=== PATIENT | male | born 1975 | race Hispanic/Latino ===

== ENCOUNTER 2017-07-30 14:20 | Emergency (ER) | payer BC ==
[~2017-07-30] VITALS: Ht 162.6 cm; Wt 98.4 kg
[2017-07-30] MEDS ORDERED: SODIUM CHLORIDE 0.9% 1000ML 1,000 ML IV STA (14:53)
[2017-07-30] MEDS ORDERED: METOCLOPRAMIDE HCL 10 MG/2ML VIAL IV ONE (15:00)
[2017-07-30 16:23] VITALS: BP 156/97
[2017-07-30] MEDS ORDERED: SODIUM CHLORIDE 0.9% 1000ML 1,000 ML IV ONE (16:30)
== END 2017-07-30 17:16 | disposition home or self-care (01) ==
LOC: FSED 14:20
DX: R50.9 Fever, unspecified (principal); G44.83 Primary cough headache; G44.89 Other headache syndrome; J11.1 Influenza due to unidentified influenza virus with other respiratory manifestations; I10 Essential (primary) hypertension
CPT/HCPCS: 70450; 74022; 80053; 81003; 83518; 85025; 87400; 99284; J2765; J7030

== ENCOUNTER 2018-10-20 00:29 | Emergency (ER) | payer BC ==
[~2018-10-20] VITALS: Ht 165.1 cm; Wt 99.8 kg
[2018-10-20] MEDS ORDERED: SODIUM CHLORIDE 0.9% 1000ML 1,000 ML IV SCH (01:00)
[2018-10-20] MEDS ORDERED: ONDANSETRON HCL INJ 2MG/ML 2ML 2 MG/ML VIAL IV STA (01:00)
[2018-10-20] MEDS ORDERED: MORPHINE SULFATE 2 MG/ML SYR 1ML IV STA (01:05)
[2018-10-20] MEDS ORDERED: MORPHINE SULFATE INJ 4 MG/ML INJ 1ML ONE (01:10)
--- NOTE | 2018-10-20 02:55 | Diagnostic Imaging Report ---
EXAM: CT Abdomen and Pelvis WITHOUT contrast INDICATION: Abdominal pain with nausea and vomiting COMPARISON: None. TECHNIQUE: Abdomen and pelvis were scanned utilizing a multidetector helical scanner from the lung base to the pubic symphysis without administration of IV contrast. Absence of intravenous contrast decreases sensitivity for detection of focal lesions and vascular pathology. Coronal and sagittal reformations were obtained. Routine protocol was performed. IV CONTRAST: None ORAL CONTRAST: None COMPLICATIONS: None RADIATION DOSE: Total DLP: 814 mGy*cm Estimated effective dose: (DLP x 0.015 x size factor) mSv CTDIvol has been reviewed. It is below the limits set by the Radiation Protocol Committee (RPC). Dose modulation, iterative reconstruction, and/or weight based adjustment of the mA/kV was utilized to reduce the radiation dose to as low as reasonably achievable. FINDINGS: LINES and TUBES: None. LOWER THORAX: Coronary artery calcifications. HEPATOBILIARY: No focal hepatic lesions. No biliary ductal dilation. GALLBLADDER: Questionable intraluminal densities. The gallbladder is mildly distended but not hydropic. No wall thickening. SPLEEN: No splenomegaly. PANCREAS: No focal masses or ductal dilatation. ADRENALS: No adrenal nodules KIDNEYS/URETERS: No hydronephrosis. No cystic or solid mass lesions. No stones. GI TRACT: Small hiatal hernia. No abnormal distention, wall thickening, or evidence of bowel obstruction. Changes of partial gastrectomy intact. Appendix is normal. PELVIC ORGANS/BLADDER: Unremarkable. LYMPH NODES: No lymphadenopathy. VESSELS: Mild arteriovascular calcifications. PERITONEUM / RETROPERITONEUM: No free air or fluid. BONES: Unremarkable. SOFT TISSUES: There is a fat containing para-umbilical hernia. IMPRESSION: 1. Small hiatal hernia. 2. Partially visualized coronary artery calcific atherosclerosis. 3. Question cholelithiasis. Consider right upper quadrant ultrasound for the evaluation. Signed by: Teodoro Friedman DO on 10/20/2018 2:52 AM
[2018-10-20] MEDS ORDERED: OMEPRAZOLE40 MG PO (17:28)
[2018-10-20] MEDS ORDERED: LOSARTAN POTAS100 MG PO (17:28)
[2018-10-20] MEDS ORDERED: LEVOTHYROXINE75 MCG PO (17:28)
[2018-10-20] MEDS ORDERED: HYDROCHLOROTH12.5 MG PO (17:28)
== END 2018-10-20 03:10 | disposition home or self-care (01) ==
LOC: FSED 00:29
DX: R10.13 Epigastric pain (principal); R11.2 Nausea with vomiting, unspecified; K80.70 Calculus of gallbladder and bile duct without cholecystitis without obstruction
CPT/HCPCS: 74176; 80048; 80076; 80307; 81003; 85025; 93005; 99284; J2270 ×2; J2405; J7030

== ENCOUNTER 2018-10-20 15:07 | Inpatient (IN) | payer BC ==
[~2018-10-20] VITALS: Ht 165.1 cm; Wt 112.1 kg
--- OUTSIDE RECORDS SUMMARY | 2018-10-20 15:09 | XMS REPORT ---
Author Author [facility] Address Unknown Phone Unavailable Care Team Providers Care Tin Roofer Name Role Phone VALERY BARKSDALE Unavailable Unavailable Problems This patient has no known problems. Allergies, Adverse Reactions, Alerts This patient has no known allergies or adverse reactions. Medications This patient has no known medications. Results Test Description Test Time Test Comments Text Results Atomic Results Result Comments CT ABD/PEL WO CONTRAST-HOPD 2018-10-20 02:38:00 [place] [address] Patient Name: FREDERICK BLANK MR #: [id number] : 1975 Age/Sex: 43/M Req #: [id number] Adm Physician: Ordered by: VALERY BARKSDALE MD Report #: [id number] Location: [facility] Room/Bed: Procedure: [id number] HOPD/CT ABD/PEL WO CONTRAST-HOPD Exam Date: 10/20/18 Exam Time: 0137 REPORT STATUS: Signed EXAM: CT Abdomen and Pelvis WITHOUT contrast INDICATION: Abdominal pain with nausea and vomiting COMPARISON: None. TECHNIQUE: Abdomen and pelvis were scanned utilizing a multidetector helical scanner from the lung base to the pubic symphysis without administration of IV contrast. Absence of intravenous contrast decreases sensitivity for detection of focal lesions and vascular pathology. Coronal and sagittal reformations were obtained. Routine protocol was performed. IV CONTRAST: None ORAL CONTRAST: None COMPLICATIONS: None RADIATION DOSE: Total DLP: 814 mGy*cm Estimated effective dose: (DLP x 0.015 x size factor) mSv CTDIvol has been reviewed. It is below the limits set by the Radiation Protocol Committee (RPC). Dose modulation, iterative reconstruction, and/or weight based adjustment of the mA/kV was utilized to reduce the radiation dose to as low as reasonably achievable. FINDINGS: LINES and TUBES: None. LOWER THORAX: Coronary artery calcifications. HEPATOBILIARY: No focal hepatic lesions. No biliary ductal dilation. GALLBLADDER: Questionable intraluminal densities. The gallbladder is mildly distended but not hydropic. No wall thickening. SPLEEN: No splenomegaly. PANCREAS: No focal masses or ductal dilatation. ADRENALS: No adrenal nodules KIDNEYS/URETERS: No hydronephrosis. No cystic or solid mass lesions. No stones. GI TRACT: Small hiatal hernia. No abnormal distention, wall thickening, or evidence of bowel obstruction. Changes of partial gastrectomy intact. Appendix is normal. PELVIC ORGANS/BLADDER: Unremarkable. LYMPH NODES: No lymphadenopathy. VESSELS: Mild arteriovascular calcifications. PERITONEUM / RETROPERITONEUM: No free air or fluid. BONES: Unremarkable. SOFT TISSUES: There is a fat containing para-umbilical hernia. IMPRESSION: 1. Small hiatal hernia. 2. Partially visualized coronary artery calcific atherosclerosis. 3. Question cholelithiasis. Consider right upper quadrant ultrasound for the evaluation. Signed by: Teodoro Friedman DO on 10/20/2018 2:52 AM Dictated By: TEODORO FRIEDMAN DO 1 Transcribed By: LUCIAN on 10/20/18251 COPY TO: VALERY BARKSDALE MD
[2018-10-20] MEDS ORDERED: CEFTRIAXONE SOD 2 GM/NS 100 ML 100 ML IV SCH (15:45)
[2018-10-20] MEDS ORDERED: SODIUM CHLORIDE 0.9% 1000ML 1,000 ML IV ONE (15:45)
[2018-10-20] MEDS ORDERED: METOCLOPRAMIDE HCL 10 MG/2ML VIAL IV ONE (15:45)
[2018-10-20] MEDS ORDERED: DICYCLOMINE HCL 20 MG/2 ML VIAL IM ONE (15:45)
[2018-10-20] MEDS ORDERED: DICYCLOMINE HCL 20 MG/2 ML VIAL IM PRN (16:30)
[2018-10-20] MEDS ORDERED: ONDANSETRON HCL INJ 2MG/ML 2ML 2 MG/ML VIAL IV PRN (16:30)
[2018-10-20] MEDS ORDERED: SODIUM CHLORIDE FLUSH 10 ML SYR INJ PRN (16:30)
[2018-10-20 16:39] LABS: BILIRUBIN,URINE NEGATIVE (NEGATIVE); CLARITY,URINE SL CLOUDY (CLEAR); COLOR,URINE YELLOW (YELLOW); KETONES,URINE NEGATIVE (NEGATIVE); LEUKOCYTE ESTERASE ,URINE NEGATIVE (NEGATIVE); NITRITE,URINE NEGATIVE (NEGATIVE); PROTEIN,URINE DIPSTICK NEGATIVE (NEGATIVE); URINE UROBILINOGEN 1 mg/dL (0.2 - 1)
[2018-10-20] MEDS ORDERED: MORPHINE SULFATE INJ 4 MG/ML INJ 1ML IV PRN (16:45)
--- NOTE | 2018-10-20 16:46 | Diagnostic Imaging Report ---
Right upper quadrant abdominal ultrasound, 10/20/2018. History: Right upper quadrant pain. Comparison: CT abdomen from today. Discussion: Transverse and longitudinal images of the right upper quadrant of the abdomen were obtained demonstrating a liver of normal size and echogenicity measuring 16.7 cm in length. There is no evidence of a focal hepatic mass. The portal vein is patent with hepatopetal flow and is within normal limits measuring 11 mm in diameter. The biliary tree is within normal limits with the common bile duct measuring 4 mm in diameter. The gallbladder contains multiple shadowing stones. The gallbladder wall measures 4 mm in thickness. The sonographic Waddell's sign was negative. The right kidney is normal in size and echogenicity without evidence of hydronephrosis, stones, or mass and measures 12.4 cm in length. The pancreas, IVC, and aorta were obscured by overlying bowel gas. There is no evidence of free fluid. IMPRESSION: 1. Cholelithiasis without sonographic evidence of cholecystitis. 2. Otherwise limited exam as described above. Signed by: Idris Rojas on 10/20/2018 4:42 PM
[2018-10-20 16:56] LABS: BASOPHILS % 0.3 % (0.0-1.0); EOSINOPHILS # (AUTO) 0.1 (0.0-0.4); EOSINOPHILS % 0.4 % (0.0-6.0); HEMATOCRIT 36.5 % (38.2-49.6); HEMOGLOBIN 11.6 g/dL (14.0-18.0); LYMPHOCYTES # (AUTO) 2.4 (1.0-3.2); LYMPHOCYTES % 20.3 % (18.0-39.1); MEAN CORPUSCULAR HEMOGLOBIN 26.9 pg (28-32); MEAN CORPUSCULAR HGB CONC 31.8 g/dL (31-35); MEAN CORPUSCULAR VOLUME 84.7 fL (81-99); MONOCYTES # (AUTO) 1.2 (0.2-0.8); MONOCYTES % 9.8 % (4.4-11.3); NEUTROPHILS # (AUTO) 8.1 (2.1-6.9); NEUTROPHILS % 68.9 % (38.7-80.0); PLATELET COUNT 212 x10e3/uL (140-360); RED BLOOD COUNT 4.31 x10e6/uL (4.3-5.7); RED CELL DISTRIBUTION WIDTH 15.4 % (11.7-14.4)
[2018-10-20 16:57] LABS: BACTERIA,URINE MODERATE /HPF; MUCUS,URINE MANY (RARE)
[2018-10-20] MEDS ORDERED: MORPHINE SULFATE 2 MG/ML SYR 1ML IV PRN (17:00)
[2018-10-20] MEDS ORDERED: FAMOTIDINE 20 MG/2 ML VIAL IV SCH (17:00)
[2018-10-20] MEDS ORDERED: BUPIVACAINE 0.25%/EPI 30ML SDV INJ ONE (17:11)
[2018-10-20 17:14] LABS: ALANINE AMINOTRANSFERASE 18 IU/L (0-55); ALBUMIN 3.4 g/dL (3.5-5.0); ALBUMIN/GLOBULIN RATIO 1.1 (0.8-2.0); ALKALINE PHOSPHATASE 54 IU/L (40-150); ANION GAP 11.7 mmol/L (8-16); BLOOD UREA NITROGEN 16 mg/dL (7-26); BUN/CREATININE RATIO 23 (6-25); CALCIUM 9.3 mg/dL (8.4-10.2); CARBON DIOXIDE 25 mmol/L (22-29); CHLORIDE 106 mmol/L (98-107); CREATININE, SERUM 0.69 mg/dL (0.72-1.25); EST GLOMERULAR FILTRATION RATE > 60 ML/MIN (60-); GLUCOSE 94 mg/dL (74-118); POTASSIUM 3.7 mmol/L (3.5-5.1); SODIUM 139 mmol/L (136-145)
[2018-10-20] MEDS: SODIUM CHLORIDE 0.9% 1000ML 1,000 ML IV SCH (17:17)
[2018-10-20] MEDS ORDERED: LOSARTAN POTAS100 MG PO (17:28)
[2018-10-20] MEDS ORDERED: OMEPRAZOLE40 MG PO (17:28)
[2018-10-20] MEDS ORDERED: LEVOTHYROXINE75 MCG PO (17:28)
[2018-10-20] MEDS ORDERED: HYDROCHLOROTH12.5 MG PO (17:28)
[2018-10-20 17:54] VITALS: BP 135/75
--- NOTE | 2018-10-20 18:00 | NUR ---
RECEIVED PT FROM ER AT 1800. PT IS A/O X4 ON ROOM AIR, NO TELE WITH A RIGHT FA 20G WITH NS RUNNING AT 125ML/HR. PT IS AMBULATORY WITH NO ASSISTANCE. PT HAS NO COMPLAINTS OF PAIN. SURGERY IS SCHEDULED FOR 1800 (LAPAROSCOPIC WITH POSSIBLE OPEN HILDA) WITH DR. Basim FRITZ. , DAUGHTER AND BROTHER ARE AT THE BEDSIDE
[2018-10-20] MEDS ORDERED: DEXAMETHASONE SOD PHOS INJ 4 MG/ML VIAL ONE (18:10)
[2018-10-20] MEDS ORDERED: ONDANSETRON HCL INJ 2MG/ML 2ML 2 MG/ML VIAL ONE (18:10)
[2018-10-20] MEDS ORDERED: NEOSTIGMINE 5 MG/5ML SYR ONE (18:10)
[2018-10-20] MEDS ORDERED: LIDOCAINE HCL 2% LOCAL INJ 5 ML SDV VIAL INJ ONE (18:10)
[2018-10-20] MEDS ORDERED: ROCURONIUM BROMIDE 10 MG/ML 5ML VIAL ONE (18:10)
[2018-10-20] MEDS ORDERED: SEVOFLURANE INHAL SOLN 250 ML PEN BTL ONE (18:10)
[2018-10-20] MEDS ORDERED: PROPOFOL IV EMULSION 10 MG/ML 20 ML VIAL ONE (18:10)
[2018-10-20] MEDS ORDERED: ACETAMINOPHEN 1000 MG/100 ML IV ONE (18:10)
[2018-10-20] MEDS ORDERED: GLYCOPYRROLATE INJ 1MG/ 5 ML SYR ONE (18:10)
[2018-10-20] MEDS ORDERED: FENTANYL CITRATE/PF 100MCG/2 ML INJ ONE (18:28)
[2018-10-20] MEDS ORDERED: MIDAZOLAM HCL 2 MG/2 ML VIAL ONE (18:28)
--- NOTE | 2018-10-20 18:35 | NUR ---
PT LEFT THE UNIT AND WENT TO PRE-OP. PT IS IN STABLE CONDITION, NO S/S OF DISTRESS
[2018-10-20 18:39] VITALS: BP 135/75
[2018-10-20] MEDS ORDERED: HYDROMORPHONE 1MG/1ML INJ IV PRN (20:15)
[2018-10-20] MEDS ORDERED: MEPERIDINE HCL INJ 25 MG/ML VIAL ONE (20:28)
--- NOTE | 2018-10-20 21:10 | NUR ---
recieved pt back from OR, no c/o of pain or discomfort, 4 trochar sites with dressings C/D/I, NS@125 via right FA 20G IV, family at bedside and call light in reach
[2018-10-20 23:05] VITALS: BP 120/70
[2018-10-21] VITALS (9 sets, daily range): BP systolic 103–142; BP diastolic 59–91
--- NOTE | 2018-10-21 00:36 | NUR ---
pt up and ambulating hallway, steady gait, no c/o pain or nausea
[2018-10-21] MEDS: SODIUM CHLORIDE 0.9% 1000ML 1,000 ML IV SCH ×3 (03:44→15:11)
[2018-10-21 05:24] LABS: HEMATOCRIT 32.9 % (38.2-49.6); HEMOGLOBIN 10.6 g/dL (14.0-18.0); LYMPHOCYTES # (AUTO) 0.8 (1.0-3.2); LYMPHOCYTES % 10.2 % (18.0-39.1); MEAN CORPUSCULAR HEMOGLOBIN 27.1 pg (28-32); MEAN CORPUSCULAR HGB CONC 32.2 g/dL (31-35); MEAN CORPUSCULAR VOLUME 84.1 fL (81-99); MONOCYTES # (AUTO) 0.3 (0.2-0.8); MONOCYTES % 4.1 % (4.4-11.3); NEUTROPHILS # (AUTO) 6.5 (2.1-6.9); NEUTROPHILS % 85.3 % (38.7-80.0); PLATELET COUNT 183 x10e3/uL (140-360); RED BLOOD COUNT 3.91 x10e6/uL (4.3-5.7); RED CELL DISTRIBUTION WIDTH 15.6 % (11.7-14.4)
[2018-10-21 05:47] LABS: ALANINE AMINOTRANSFERASE 166 IU/L (0-55); ALBUMIN 2.8 g/dL (3.5-5.0); ALKALINE PHOSPHATASE 119 IU/L (40-150); ANION GAP 11.9 mmol/L (8-16); BLOOD UREA NITROGEN 12 mg/dL (7-26); BUN/CREATININE RATIO 18 (6-25); CALCIUM 8.6 mg/dL (8.4-10.2); CARBON DIOXIDE 24 mmol/L (22-29); CHLORIDE 103 mmol/L (98-107); CHOL/HDL RATIO 2.9 (3.9-4.7); CHOLESTEROL 126 MD/DL (0-199); CREATININE, SERUM 0.66 mg/dL (0.72-1.25); EST GLOMERULAR FILTRATION RATE > 60 ML/MIN (60-); GLUCOSE 141 mg/dL (74-118); HDL CHOLESTEROL 44 MG/DL (40-60); LDL CHOLESTEROL 73 MG/DL (60-130); POTASSIUM 3.9 mmol/L (3.5-5.1); SODIUM 135 mmol/L (136-145); TRIGLYCERIDES 45 MG/DL (0-149)
--- NOTE | 2018-10-21 07:00 | NUR ---
BEDSIDE SHIFT REPORT RECEIVED FROM THE PARTS MANAGER RN. PT FAMILY AT BEDSIDE. PT DENIES NEEDS AT THIS TIME
[2018-10-21] MEDS: HYDROCODONE/APAP 7.5MG-325MG 1 EA TAB PO PRN ×3 (07:38→22:02)
--- NOTE | 2018-10-21 07:55 | NUR ---
DR. Carlos FRITZ AT BEDSIDE. D/C PT AFTER LUNCH FULL LIQUID DIET PER THE
[2018-10-21] MEDS: LOSARTAN POTASSIUM 100 MG TAB PO SCH (08:01)
--- NOTE | 2018-10-21 09:25 | NUR ---
DR. EPPS AT BEDSIDE. HOLD D/C TILL TOMORROW PER THE
[2018-10-21] MEDS: CEFOXITIN 1GM/ D5W 50ML 50 ML IV SCH ×2 (10:30→17:33)
--- NOTE | 2018-10-21 10:30 | NUR ---
CALLED TRACEE FRITZ OFFICE AND INFORMED ABOUT PT D/C HOLD TILL TOMORROW.
--- NOTE | 2018-10-21 13:30 | NUR ---
PAGED DR. Carlos FRITZ REGARDING DIET. NEW ORDER REGULAR DIET RECEIVED. PER THE DR, HE WILL SEE THE PT LATER TODAY AND WILL DECIDE D/C PLAN.
--- NOTE | 2018-10-21 19:00 | NUR ---
BEDSIDE SHIFT REPORT GIVEN TO THE TATTOO ARTIST RN. PT DENIED FURTHER NEEDS.
--- NOTE | 2018-10-21 19:35 | NUR ---
PATIENT RECEIVED. PATIENT IS RESTING IN BED, AAOX3. RESP EVEN AND UNLABORED. NO ACUTE DISTRESS NOTED AT THIS TIME. FAMILY AT BED SIDE. CALL LIGHT WITHIN REACH. INSTRUCT TO CALL FOR ASSISTANCE. BED LOW/LOCKED. CONTINUE TO MONITOR CLOSELY
[2018-10-22] MEDS: CEFOXITIN 1GM/ D5W 50ML 50 ML IV SCH ×3 (02:20→17:00)
[2018-10-22] MEDS: HYDROCODONE/APAP 7.5MG-325MG 1 EA TAB PO PRN ×3 (02:22→14:40)
[2018-10-22 03:51] VITALS: BP 125/74
[2018-10-22 06:03] LABS: BASOPHILS % 0.3 % (0.0-1.0); EOSINOPHILS # (AUTO) 0.1 (0.0-0.4); EOSINOPHILS % 1.5 % (0.0-6.0); HEMATOCRIT 29.8 % (38.2-49.6); HEMOGLOBIN 9.8 g/dL (14.0-18.0); LYMPHOCYTES # (AUTO) 1.8 (1.0-3.2); LYMPHOCYTES % 30.4 % (18.0-39.1); MEAN CORPUSCULAR HEMOGLOBIN 27.5 pg (28-32); MEAN CORPUSCULAR HGB CONC 32.9 g/dL (31-35); MEAN CORPUSCULAR VOLUME 83.5 fL (81-99); MONOCYTES # (AUTO) 0.6 (0.2-0.8); MONOCYTES % 9.9 % (4.4-11.3); NEUTROPHILS # (AUTO) 3.4 (2.1-6.9); NEUTROPHILS % 57.6 % (38.7-80.0); PLATELET COUNT 184 x10e3/uL (140-360); RED BLOOD COUNT 3.57 x10e6/uL (4.3-5.7); RED CELL DISTRIBUTION WIDTH 15.5 % (11.7-14.4)
[2018-10-22 06:28] LABS: ALANINE AMINOTRANSFERASE 132 IU/L (0-55); ALBUMIN 2.7 g/dL (3.5-5.0); ALBUMIN/GLOBULIN RATIO 1.1 (0.8-2.0); ALKALINE PHOSPHATASE 108 IU/L (40-150); ANION GAP 7.5 mmol/L (8-16); BLOOD UREA NITROGEN 7 mg/dL (7-26); BUN/CREATININE RATIO 11 (6-25); CALCIUM 8.2 mg/dL (8.4-10.2); CARBON DIOXIDE 25 mmol/L (22-29); CHLORIDE 106 mmol/L (98-107); CREATININE, SERUM 0.62 mg/dL (0.72-1.25); EST GLOMERULAR FILTRATION RATE > 60 ML/MIN (60-); GLUCOSE 106 mg/dL (74-118); POTASSIUM 3.5 mmol/L (3.5-5.1); SODIUM 135 mmol/L (136-145)
--- NOTE | 2018-10-22 07:05 | NUR ---
RCD PT AT BED PT IS ALERT AND ORIENTED RESTING ON BED NO SIGNS OF ANY DISTRESS NOTED IV PATENT AND RUNNING 75 ML /HR BED LOW AND LOCKED CALL LIGHT IN REACH
[2018-10-22 07:55] VITALS: BP 143/94
[2018-10-22 08:45] VITALS: BP 143/94
[2018-10-22] MEDS: LOSARTAN POTASSIUM 100 MG TAB PO SCH (09:00)
--- NOTE | 2018-10-22 10:14 | Operative Report ---
DATE OF PROCEDURE: 10/20/2018 SURGEON: Adal Mejia MD PREOPERATIVE DIAGNOSIS: Acute cholecystitis secondary to cholelithiasis. POSTOPERATIVE DIAGNOSIS: Acute cholecystitis secondary to cholelithiasis. PROCEDURE PERFORMED: Laparoscopic cholecystectomy. INSURANCE OPERATIONS REP: Flavio Mejia MD. ANESTHESIA: General. ESTIMATED BLOOD LOSS: Minimal. DRAINS: None. COMPLICATIONS: None. INDICATION AND FINDINGS: The patient is a 43-year-old male admitted through my office because of severe right upper quadrant pain. The patient was in the flagsetter hours of the day of admission and the outlying ER had a CAT scan that suggested the possibility of a stone and then referred to our office for urgent evaluation. Upon evaluation of the patient in my office, he was complaining of too much pain, he was admitted through the emergency room. He had an ultrasound that revealed cholelithiasis. Liver chemistries are normal. Intraoperative findings were acute cholecystitis secondary to cholelithiasis. There were several large stones. There was no ductal dilatation. DESCRIPTION OF PROCEDURE: With the patient lying on the operative table in the supine position after administration of general endotracheal anesthesia, he was prepped and draped for laparoscopic cholecystectomy. The procedure was begun by establishing pneumoperitoneum in the right upper quadrant midclavicular line and then we switched to the umbilical site because we could not get a free intraperitoneal position on the right upper quadrant. After we established a pneumoperitoneum in the umbilical site after a puncture wound in that location with a Veress needle, we created a pneumoperitoneum with 15 mm of pressure and then the 10/11 trocar placed in that location under direct vision with the camera. We placed a 10/11 subxiphoid port and finally 2 lateral working ports 5 mm each in the right midclavicular line and the right anterior axillary line. The gallbladder was then retracted cephalad using grasping forceps. The gallbladder wall was edematous and thickening all consistent with cholecystitis. We were able then to begin the dissection of the hepatorenal ligament high in the neck of the gallbladder and to identify the cystic duct. We at this point then clipped the cystic duct distally twice and once proximally after identification of the cystic duct, common bile duct junction, the cystic artery was identified, also transected between titanium clips also. Then, the gallbladder was taken down for the liver bed using a combination of blunt dissection, traction, countertraction, electrocautery and hydrodissection until we detached it. We placed the gallbladder on an Endobag and removed it through the umbilical port. After we did that, we reinspected the operative field. After ascertaining there was no bleeding, no bile leak, or apparent bowel injury. We closed the wound using 0 Vicryl for the umbilical site and 0 Vicryl for the subcutaneous tissue in that location and 3-0 Vicryl was used to close the subxiphoid port and the skin of all the ports was closed using ross, 0.25% Marcaine with epinephrine was given as a local block at the end of the case. The patient tolerated the procedure well, taken to the recovery room in stable condition. The family was informed of intraoperative findings. MD RANJIT Roach/STELLA /[id number]
[2018-10-22] MEDS: SODIUM CHLORIDE 0.9% 1000ML 1,000 ML IV SCH (10:23)
--- NOTE | 2018-10-22 13:20 | NUR ---
AC TO DR Carlos MONTOYA OR NURSE ( JONATAN ) SAID HOLD THE DISCHARGE UNTIL THE MRI REPORT
[2018-10-22 13:41] VITALS: BP 142/97
[2018-10-22] MEDS ORDERED: TYLENOL WITH C1 EACH PO (14:49)
--- NOTE | 2018-10-22 16:00 | NUR ---
MRCP REPORT GIVEN BY THE RADIOLOGY BY PAPER THAT NOTIFIED TO DR Carlos GARCIA SAID ITS OK TO DISCHARGE THE PATIENT
--- NOTE | 2018-10-22 16:05 | NUR ---
AC TO DR Carlos MONTOYA PT CAN GO HOME ,PAGED AND NOTIFIED DR EPPS GOT THE DISCHARGE ORDER
[2018-10-22 16:39] VITALS: BP 155/96
[2018-10-22 17:10] VITALS: BP 140/82
--- NOTE | 2018-10-22 17:17 | NUR ---
PT WENT HOME IN SAFE CONDITION WITH HIS
--- NOTE | 2018-11-06 15:49 | Diagnostic Imaging Report ---
MRCP dated October 22, 2018 Comment: Multiplanar T1 and T2-weighted images of the abdomen, respiratory triggered and breath held MRCP sequences were obtained. 3-D reconstruction of the abdomen were performed for better evaluation of the biliary tree. The gallbladder is surgically absent. Small amount of fluid is seen in the gallbladder fossa measuring approximately 2.3 x 3 cm suggestive of postoperative seroma or biloma. MRCP demonstrates normal caliber intra and extrahepatic biliary ducts. No filling defect is seen in the biliary ducts to suggest choledocholithiasis. Common bile duct measures approximately 2 mm in diameter. Liver is normal in size without focal abnormality. Liver is suboptimally evaluated secondary to lack of intravenous contrast. Spleen is normal in size. Pancreas and adrenals are unremarkable. Both kidneys are normal in size. The visualized small and large bowel are normal-caliber. Impression: 1. Status post cholecystectomy with small fluid in the gallbladder fossa. 2. No choledocholithiasis or biliary dilatation. Signed by: Daniel Bustillo MD on 10/22/2018 11:24 AM
--- NOTE | 2018-12-07 00:39 | Discharge Summary ---
FINAL DIAGNOSES: 1. Acute cholecystitis. 2. Status post laparoscopic cholecystectomy. SUMMARY: The patient is a 43-year-old male, morbidly obese, BMI greater than 40, came in with acute cholecystitis with elevation of liver enzymes. The patient is status post laparoscopic cholecystectomy. The patient was stable. Antibiotics were given. The patient responded well. He was seen by Dr. Flavio Mejia. Surgical note no complication. The patient is subsequently discharged home. Resume home medication. Cascilla diet and follow up with Dr. Flavio Mejia in approximately 1 week. MD JESSICA Vance/PREMAL /[id number]
== END 2018-10-22 17:16 | disposition home or self-care (01) | DRG 418 ==
LOC: ER 15:07 → ERHOLD 16:23 → MED/SURG2 17:51
PROVIDERS: ADMIT Internal Medicine; ATTEND Internal Medicine
PROC: 0FT44ZZ Resection of Gallbladder, Percutaneous Endoscopic Approach (ICD-10-PCS; principal; 2018-10-20 19:00)
DX: K80.00 Calculus of gallbladder with acute cholecystitis without obstruction (principal); E66.2 Morbid (severe) obesity with alveolar hypoventilation; Z68.41 Body mass index [BMI] 40.0-44.9, adult; I10 Essential (primary) hypertension; E78.5 Hyperlipidemia, unspecified; E03.9 Hypothyroidism, unspecified; D64.9 Anemia, unspecified
CPT/HCPCS: 36415; 74181; 76705; 80053; 80061; 81001; 83690; 85025; 88304; 99284; C1766; J0500; J0696; J1100; J1170; J2001; J2175; J2250; J2270; J2405; J2765; J3010; J7030

== ENCOUNTER → 2018-10-28 | Outpatient (CLI) | payer BC ==
[~2018-10-28] MED LIST: HYDROCHLOROTH12.5 MG PO; LEVOTHYROXINE75 MCG PO; LOSARTAN POTAS100 MG PO; OMEPRAZOLE40 MG PO; TYLENOL WITH C1 EACH PO
[2018-10-28 09:41] LABS: ALBUMIN 3.5 g/dL (3.5-5.0)
[2018-10-28 10:34] LABS: BILIRUBIN,DIRECT 0.7 mg/dL (0.0-0.5)
== END ==
LOC: LAB 09:12
PROVIDERS: ATTEND Surgery
DX: R17 Unspecified jaundice (principal)
CPT/HCPCS: 36415; 80076